=== PATIENT | female | born 2000 | race African-American/Black ===

== ENCOUNTER 2022-04-21 23:24 | Inpatient (IN) | payer MEDICAID, OTHER ==
[~2022-04-21] VITALS: Ht 160 cm; Wt 52.6 kg
[2022-04-22 01:57] LABS: BASOPHILS % (AUTO) 0.9 % (0.0-2.0); HEMATOCRIT 36.5 % (36-46); HEMOGLOBIN 12.1 g/dL (12.0-16.0); LYMPHOCYTES # (AUTO) 2.3 K/uL (1.0-4.8); LYMPHOCYTES % (AUTO) 29.4 % (22.0-44.0); MEAN CORPUSCULAR HEMOGLOBIN 30.3 pg (26.0-34.0); MEAN CORPUSCULAR HGB CONC 33.2 G/dL (31.0-37.0); MEAN CORPUSCULAR VOLUME 91 fL (80-100); MONOCYTES # (AUTO) 0.3 K/uL (0.1-1.0); NEUTROPHILS % (AUTO) 64.7 % (40.0-70.0); PLATELET COUNT (AUTO) 305 K/uL (150-450); RED BLOOD CELL COUNT(AUTO) 3.99 MIL/uL (4.00-5.20); RED CELL DISTRIBUTION WIDTH 14.7 % (11.5-14.5)
[2022-04-22 01:57] LABS: COVID AG,FIA SOURCE NASOPHARYNGEAL
[2022-04-22] MEDS: HALOPERIDOL LACTATE 5 MG/ML VIAL IM ONE ×2 (02:00→02:02)
[2022-04-22] MEDS: DiphenhydrAMINE HCL 50 MG/ML VIAL IM ONE ×2 (02:00→02:02)
[2022-04-22 02:07] LABS: ANION GAP 14 mmol/L (8-16); CALCIUM, TOTAL 9.3 mg/dL (8.8-10.5); CARBON DIOXIDE 22 mmol/L (22-29); CHLORIDE 108 mmol/L (98-107); CREATININE 0.67 mg/dL (0.60-1.30); GLUCOSE,RANDOM 80 mg/dL (70-110); POTASSIUM 3.8 mmol/L (3.5-5.1); SODIUM SERUM 144 mmol/L (136-145); UREA NITROGEN, BLOOD 12 mg/dL (7-18)
[2022-04-22 02:16] LABS: GLOMERULAR FILTR. RATE CALC > 60 mL/min (>60)
[2022-04-22 02:22] LABS: ALANINE AMINOTRANSFERASE 25 U/L (12-78); ALBUMIN 4.3 g/dL (3.4-5.0); ALKALINE PHOSPHATASE 68 U/L (46-116); ASPARTATE AMINOTRANSFERASE 25 U/L (15-37); BILIRUBIN,TOTAL 0.3 mg/dL (0.1-1.0); HCG,QUANTITATIVE < 1 mIU/mL (0-6); THYROID STIMULATING HORMONE 0.85 uIU/mL (0.36-3.74); TOTAL PROTEIN, SERUM 7.4 g/dL (6.4-8.2)
[2022-04-22] MEDS ORDERED: ZOLPIDEM TARTRATE 10 MG TABLET PO PRN (03:30)
[2022-04-22] MEDS ORDERED: HALOPERIDOL 5 MG TABLET PO PRN (03:30)
[2022-04-22] MEDS: LORazepam 2 MG TABLET PO PRN ×3 (09:54→20:20)
[2022-04-22 11:08] LABS: AMPHET/METH SCREEN,URINE NEGATIVE (NEGATIVE); BARBITURATE SCREEN, URINE NEGATIVE (NEGATIVE); BENZODIAZEPINES SCREEN,URINE POSITIVE (NEGATIVE); CANNABINOID SCREEN,URINE POSITIVE (NEGATIVE); COCAINE SCREEN,URINE NEGATIVE (NEGATIVE); METHADONE SCREEN, URINE NEGATIVE (NEGATIVE); OPIATE SCREEN,URINE NEGATIVE (NEGATIVE)
[2022-04-22 11:09] LABS: PHENCYCLIDINE SCREEN,URINE NEGATIVE (NEGATIVE)
[2022-04-22 21:21] VITALS: BP 124/77
[2022-04-22] MEDS ORDERED: PETROLATUM,WHITE 28 GM JELLY TP PRN (23:00)
[2022-04-22] MEDS ORDERED: BENZOCAINE/MENTHOL LOZENGE PO PRN (23:00)
[2022-04-22] MEDS ORDERED: ONDANSETRON HCL 4 MG TABLET PO PRN (23:00)
[2022-04-22] MEDS ORDERED: IBUPROFEN 600 MG TABLET PO PRN (23:00)
[2022-04-22] MEDS ORDERED: LOPERAMIDE HCL 2 MG CAPSULE PO PRN (23:00)
[2022-04-22] MEDS ORDERED: DOCUSATE SODIUM 100 MG CAPSULE PO PRN (23:00)
[2022-04-22] MEDS ORDERED: ACETAMINOPHEN 325 MG TABLET PO PRN (23:00)
[2022-04-22] MEDS ORDERED: CloNIDine HCL 0.1 MG TABLET PO PRN (23:00)
[2022-04-22] MEDS ORDERED: MAG HYDROX/AL HYDROX/SIMETH ES 30 ML SUSPENSION UDCUP PO PRN (23:00)
[2022-04-22] MEDS ORDERED: OMEPRAZOLE 20 MG CAPSULE PO PRN (23:00)
[2022-04-22] MEDS ORDERED: MAGNESIUM HYDROXIDE SUSPENSION 30 ML UDCUP PO PRN (23:00)
[2022-04-22] MEDS ORDERED: ALBUTEROL SULFATE HFA 90 MCG/PUFF 8 GM INHALER IH PRN (23:00)
[2022-04-22] MEDS ORDERED: BACITRACIN 28 GM OINTMENT TP PRN (23:00)
[2022-04-23 08:56] VITALS: BP 129/80
[2022-04-23 16:26] VITALS: BP 130/89
[2022-04-23] MEDS: LORazepam 2 MG TABLET PO PRN (19:08)
[2022-04-23 21:13] VITALS: BP 131/81
[2022-04-24 00:24] VITALS: BP 131/81
[2022-04-24] MEDS: DIVALPROEX SODIUM 500 MG DR TABLET PO SCH ×2 (08:07→16:03)
[2022-04-24] MEDS: RisperiDONE 0.5 MG TABLET PO SCH ×2 (08:08→16:03)
[2022-04-24 08:09] VITALS: BP 132/85
[2022-04-24] MEDS ORDERED: DIVA-112 PO (11:42)
[2022-04-24] MEDS ORDERED: RISP0.5T66 PO (11:42)
[2022-04-24 20:12] VITALS: BP 127/79
[2022-04-25 08:24] VITALS: BP 115/73
[2022-04-25] MEDS: DIVALPROEX SODIUM 500 MG DR TABLET PO SCH ×2 (08:42→08:44)
[2022-04-25] MEDS: RisperiDONE 0.5 MG TABLET PO SCH (09:08)
== END 2022-04-25 16:39 | disposition home or self-care (01) | DRG 751 ==
LOC: EMS 23:25 → B2S 04-22 16:16
PROVIDERS: ADMIT Psychiatry & Neurology Psychiatry; ATTEND Psychiatry & Neurology Psychiatry
DX: F32.3 Major depressive disorder, single episode, severe with psychotic features (principal); R45.850 Homicidal ideations; R45.851 Suicidal ideations; F06.4 Anxiety disorder due to known physiological condition; F10.129 Alcohol abuse with intoxication, unspecified; Y90.6 Blood alcohol level of 120-199 mg/100 ml; G47.00 Insomnia, unspecified; K59.00 Constipation, unspecified; K21.9 Gastro-esophageal reflux disease without esophagitis; F10.139 Alcohol abuse with withdrawal, unspecified; F12.90 Cannabis use, unspecified, uncomplicated; Z20.822 Contact with and (suspected) exposure to COVID-19; Z71.41 Alcohol abuse counseling and surveillance of alcoholic; Z87.891 Personal history of nicotine dependence; Z79.899 Other long term (current) drug therapy; Z71.51 Drug abuse counseling and surveillance of drug abuser
CPT/HCPCS: 80053; 84443; 84702; 85025; 99285; G0480; J1200; J1630